=== PATIENT | female | born 1945 | race Caucasian/White ===

== ENCOUNTER 2016-06-21 08:14 | Emergency (ER) | payer MEDICARE | END 2016-06-21 10:20 | disposition home or self-care (01) | LOC: D.ER 08:14 | DX: S39.012A Strain of muscle, fascia and tendon of lower back, initial encounter (principal); W01.0XXA Fall on same level from slipping, tripping and stumbling without subsequent striking against object, initial encounter; Y93.89 Activity, other specified; Y92.410 Unspecified street and highway as the place of occurrence of the external cause; S16.1XXA Strain of muscle, fascia and tendon at neck level, initial encounter; S00.03XA Contusion of scalp, initial encounter ==